=== PATIENT | male | born 1950 | race Caucasian/White ===

== ENCOUNTER 2023-04-09 19:06 | Inpatient (IN) | payer MEDICARE, OTHER ==
[~2023-04-09] VITALS: Ht 172.7 cm; Wt 79.8 kg
--- NOTE | 2023-04-09 19:45 | NUR ---
Back from CT.
[2023-04-09 20:03] LABS: *BILIRUBIN,URIN NEGATIVE (NEGATIVE); *CLARITY,URINE CLEAR (CLEAR); *COLOR,URINE YELLOW (YELLOW); *KETONES,URINE NEGATIVE (NEGATIVE); *UROBILINOGEN,URINE 0.2 E.U./dl (NORMAL); LEUKOCYTE ESTERASE ,URINE NEGATIVE (NEGATIVE); NITRITE, URINE NEGATIVE (NEGATIVE); UGLUCOSE NEGATIVE (NEGATIVE)
[2023-04-09 20:04] LABS: MEAN CORPUSCULAR HEMOGLOBIN 29.1 uug (23.8-33.4); PLATELET COUNT (AUTO) 185 K/uL (152-348)
[2023-04-09 20:15] LABS: CARBON DIOXIDE 30 mmol/L (21-32); CHLORIDE 105 mmol/L (98-107); GLUCOSE 89 mg/dL (74-106); POTASSIUM 4.1 mmol/L (3.5-5.1); UREA NITROGEN, BLOOD 15 mg/dL (7-18)
[2023-04-09 20:23] LABS: *BLOOD, URINE TRACE (NEGATIVE)
[2023-04-09 20:23] LABS: ALANINE AMINOTRANSFERASE 25 U/L (16-63); ALKALINE PHOSPHATASE 59 U/L (50-136); ASPARTATE AMINOTRANSFERASE 7 U/L (15-37); BILIRUBIN,DIRECT 0.1 mg/dL (0.0-0.2); BILIRUBIN,TOTAL 0.3 mg/dL (0.2-1.0); TOTAL PROTEIN, SERUM 6.9 g/dL (6.4-8.2)
--- NOTE | 2023-04-09 20:33 | NUR ---
Dr Alves on panel call with BEBA Carrillo. Patient accepted for admission to Tele unit, Dx r/o stroke
--- NOTE | 2023-04-09 20:40 | NUR ---
Called 3rd floor for bed, spoke with Kira MADRIDjewel supervisor. No nurse to accept the patient at tele unit.
[2023-04-09] MEDS ORDERED: ENOXAPARIN SODIUM 40 MG/0.4 ML DISP.SYRIN SQ SCH (20:45)
[2023-04-09] MEDS ORDERED: ACETAMINOPHEN 325 MG TABLET PO PRN (20:45)
[2023-04-09] MEDS ORDERED: HYDROCODONE/APAP 10-325 MG TABLET PO PRN (20:45)
[2023-04-09] MEDS ORDERED: ONDANSETRON 4 MG/2 ML VIAL IV PRN (20:45)
[2023-04-09] MEDS ORDERED: MAGNESIUM HYDROXIDE 30 ML LIQUID UDC PO PRN (20:45)
[2023-04-09] MEDS ORDERED: ASPIRIN 325 MG TABLET ONE (20:54)
[2023-04-09] MEDS ORDERED: IOHEXOL 350 100 ML INFUS..BTL ONE (20:54)
[2023-04-09] MEDS ORDERED: IV NORMAL SALINE 250 ML IV ONE (20:54)
[2023-04-09] MEDS ORDERED: SWABABLE VALVE TRANSFER SET EA MC ONE (20:54)
[2023-04-09] MEDS ORDERED: ASPIRIN 325 MG TABLET PO ONE (21:00)
[2023-04-09] MEDS ORDERED: ATORVASTATIN 40 MG TABLET PO SCH (21:00)
--- NOTE | 2023-04-09 21:00 | NUR ---
Patient ambulated to the restroom with steady gait, NAD noted.
--- NOTE | 2023-04-09 21:41 | NUR ---
Back from CT.
[2023-04-09 22:09] LABS: BACTERIA,URINE FEW /HPF (NONE SEEN); SQUAMOUS EPITHELIAL CELL,UR NONE SEEN /HPF (NONE SEEN); WBC,URINE 0-3 /HPF (0-3)
--- NOTE | 2023-04-09 22:15 | NUR ---
Patient placed on transition.
[2023-04-09] MEDS ORDERED: ATORVASTATIN 20 MG TABLET ONE (22:31)
[2023-04-09] MEDS ORDERED: ENOXAPARIN SODIUM 40 MG/0.4 ML DISP.SYRIN SQ ONE (22:31)
[2023-04-10 04:52] LABS: MEAN CORPUSCULAR HEMOGLOBIN 28.9 uug (23.8-33.4); MEAN CORPUSCULAR VOLUME 87.1 fL (73.0-96.2); PLATELET COUNT (AUTO) 176 K/uL (152-348)
[2023-04-10 05:10] LABS: MAGNESIUM 2.1 mg/dL (1.8-2.4); PHOSPHOROUS 4.3 mg/dL (2.5-4.9); POTASSIUM 3.6 mmol/L (3.5-5.1)
[2023-04-10 05:20] LABS: THYROID STIMULATING HORMONE 0.986 mIU/mL (0.358-3.740)
--- NOTE | 2023-04-10 05:28 | NUR ---
Patient slept well during the night. at bedside. In no acute distress. No complain of pain or SOB. NSR on tele with HR of 62/min. IV site on right AC #18G intact and patent. Needs attended to and met. Safety measure initiated.
--- NOTE | 2023-04-10 07:08 | NUR ---
Received report from Marielos ([facility]). Pt is A&Ox4 and cooperative. Pt is in no S&S of distress. Safety measures in place. Will continue to monitor.
--- NOTE | 2023-04-10 07:10 | NUR ---
SBAR report given to day shift [facility].
[2023-04-10] MEDS ORDERED: ASPIRIN EC 81 MG TABLET.DR PO ONE (08:04)
--- NOTE | 2023-04-10 08:16 | NUR ---
Pt has kosher diet. Informed dietary. Safety measures in place. Will continue to monitor.
--- NOTE | 2023-04-10 08:40 | NUR ---
Pt currently getting echo. Safety measures in place. Will continue to monitor.
[2023-04-10] MEDS ORDERED: ASPIRIN EC 81 MG TABLET.DR PO SCH (09:00)
--- NOTE | 2023-04-10 09:03 | NUR ---
Was informed by Patient and that pt takes Amlodipine 5mg BID.
[2023-04-10] MEDS ORDERED: AMLO5TAB4 PO (09:33)
--- NOTE | 2023-04-10 17:20 | NUR ---
Gave report to Jamarcus (RN).
--- NOTE | 2023-04-10 17:35 | NUR ---
Pt transferred to [facility] in stable condition. Pt arrived on bed safely. All belongings are with patient.
[2023-04-10] MEDS ORDERED: ASPI-618 PO (18:07)
--- NOTE | 2023-04-10 18:21 | NUR ---
patient came from ER, wanted to leave AMA, patient's bedside stated they have been waiting for neurologist since morning, spoke to dr byrd, and dr morgan, dr byrd came to see patient and stated they can go home. patient and patient did not want to wait for any discharge instructions, and wanted to leave right away, IV removed, ID removed, instructed patient to take aspirin as instructed by dr byrd, patient stated ok ,verbalized understanding of it. patient and patient's walked away. said she has her car downstairs and will drive her home.
--- NOTE | 2023-04-10 18:26 | NUR ---
patient is alert, oriented x4, no sob, respirations are even nonlabored, ambulatory, skin warm and dry to touch, no distress noted, no neurological deficit noted.
== END 2023-04-10 18:15 | disposition left against medical advice (07) | DRG 69 ==
LOC: ER 19:10 → TRANSITION 21:52 → TELE3 04-10 17:19
PROVIDERS: ADMIT Nurse Practitioner Family; ATTEND Internal Medicine
DX: G45.9 Transient cerebral ischemic attack, unspecified (principal); R94.31 Abnormal electrocardiogram [ECG] [EKG]; E66.9 Obesity, unspecified; Z68.26 Body mass index [BMI] 26.0-26.9, adult; E78.1 Pure hyperglyceridemia; I11.9 Hypertensive heart disease without heart failure; J32.0 Chronic maxillary sinusitis; I67.2 Cerebral atherosclerosis; G83.24 Monoplegia of upper limb affecting left nondominant side; Z20.822 Contact with and (suspected) exposure to COVID-19
CPT/HCPCS: 36415; 70450; 70496; 71045; 83735; 84100; 84443; 84484; 85025; 85730; 93005; 93307; G0378; J1650; Q9967